=== PATIENT | male | born 1980 | race Caucasian/White ===

== ENCOUNTER 2024-03-21 15:26 | Emergency (ER) | payer OTHER ==
[~2024-03-21] VITALS: Ht 177.8 cm; Wt 113.4 kg
[2024-03-21 15:26] VITALS: BP_SYST 127; PULSE 91; RESP 18; TEMP 97.2; O2SAT 99
[2024-03-21] MEDS: ONDANSETRON HCL 4 MG/2 ML VIAL IVP ONE ×2 (16:04→16:23)
[2024-03-21] MEDS: NACL 0.9% 1,000 ML IV ONE (16:05)
[2024-03-21] MEDS: MORPHINE 4 MG INJ. 4 MG/ML VIAL IVP ONE (16:09)
[2024-03-21 17:17] LABS: BASOPHILS # (AUTO) 0.1 K/uL (0.0-0.2); BASOPHILS % (AUTO) 0.5 % (0.0-2.0); EOSINOPHILS % (AUTO) 0.1 % (0.0-4.0); HEMOGLOBIN 12.5 g/dL (14.0-18.0); LYMPHOCYTES % (AUTO) 8.4 % (20.5-51.5); MEAN CORPUSCULAR HEMOGLOBIN 31 pg (27-31); MEAN CORPUSCULAR HGB CONC 34 % (32-36); MEAN CORPUSCULAR VOLUME 90 fL (79.0-98.0); MONOCYTES % (AUTO) 8.5 % (1.7-9.3); NEUTROPHILS # (AUTO) 9.9 K/uL (1.8-7.7); NEUTROPHILS % (AUTO) 82.5 % (40.0-70.0); PLATELET COUNT (AUTO) 450 K/uL (130-430); RED CELL DISTRIBUTION WIDTH 13.5 % (9.0-15.0)
[2024-03-21 17:31] LABS: ALANINE AMINOTRANSFERASE 20 U/L (12-78); ALBUMIN 2.9 g/dL (3.4-4.8); ANION GAP 10 (5-15); ASPARTATE AMINOTRANSFERASE 19 U/L (10-37); CALCIUM 8.6 mg/dL (8.4-11.0); CARBON DIOXIDE 25 mmol/L (23-29); CHLORIDE 105 mmol/L (98-107); CREATININE 1.14 mg/dL (0.55-1.30); GFR AFRICAN AMERICAN 91 mL/min (>90); GLUCOSE 169 mg/dL (74-106); POTASSIUM 3.4 mmol/L (3.5-5.1); SODIUM SERUM 140 mmol/L (136-145); TOTAL BILIRUBIN 0.5 mg/dL (0.0-1.0); TOTAL PROTEIN, SERUM 6.6 g/dL (6.4-8.3); UREA NITROGEN, BLOOD 15 mg/dL (8-21)
[2024-03-21 17:33] LABS: BILIRUBIN,DIRECT 0.3 mg/dL (0.0-0.3); LIPASE 79 U/L (16-77)
[2024-03-21 17:43] LABS: ALCOHOL, BLOOD < 3 mg/dL (<10); GFR NON AFRICAN-AMERICAN 75 mL/min (>90)
[2024-03-21 18:20] VITALS: BP_SYST 104; PULSE 104; RESP 20; TEMP 97.2; O2SAT 94
== END 2024-03-21 18:10 | disposition left against medical advice (07) ==
LOC: SED 15:26
DX: R07.89 Other chest pain (principal); K86.1 Other chronic pancreatitis; R10.11 Right upper quadrant pain; R11.0 Nausea; E11.9 Type 2 diabetes mellitus without complications; I10 Essential (primary) hypertension; E78.00 Pure hypercholesterolemia, unspecified
CPT/HCPCS: 99285; 96374; 71045; 96361; 96375; 80076; 80048; 83690; 85025; 84484; 36415; 93005; G0482; J2405; J2270; J7030